=== PATIENT | male | born 1980 | race Caucasian/White ===

== ENCOUNTER 2019-02-07 11:06 | Outpatient (REF) | payer BC, SELFPAY ==
[2019-02-07 12:26] LABS: Abs Immature Grans 0.01 k/cumm (0.0-0.09); Absolute Basophil Count 0.02 k/cumm (0.0-0.2); Absolute Eosinophil Count 0.03 k/cumm (0.0-0.7); Absolute Lymphocyte Count 0.71 k/cumm (1.2-3.4); Absolute Monocyte Count 1.41 k/cumm (0.11-0.7); Absolute Neutrophil Count 9.44 k/cumm (1.2-6.7); Basophils % 0.2; Eosinophils % 0.3; HCT 35.5 % (40.0-50.0); HGB 11.9 g/dL (13.5-17.5); Immature Grans % 0.1; Lymphocytes % 6.1; Mean Corp. HGB Concentration 33.5 g/dL (32.0-36.0); Mean Corpuscular Volume 62.7 fL (80-95); Monocytes % 12.1; Neutrophils % 81.2; RBC 5.66 m/cumm (4.50-6.00); RBC Distribution Width 16.3 % (11.8-14.1); White Blood Cell Count 11.62 k/cumm (4.4-10.8)
[2019-02-07 12:36] LABS: ALT 35 U/L (16-63); AST 22 U/L (15-37); Albumin 4.1 g/dL (3.4-5.0); Alkaline Phosphatase 118 U/L (46-116); Anion Gap 8.6 mmol/L (3-11); BUN 12 mg/dL (7-18); Bilirubin, Total 1.7 mg/dL (0.2-1.0); CO2 26.4 mmol/L (21.0-32.0); CREATININE 0.92 mg/dL (0.70-1.30); Chloride 101 mmol/L (98-107); Glucose 96 mg/dL (70-100); Potassium 4.2 mmol/L (3.5-5.1); Sodium 136 mmol/L (136-145); Total Protein 7.6 g/dL (6.4-8.2)
[2019-02-07 12:44] LABS: Anisocytosis 3+; Basophilic Stippling Present; Diff Comment RBC Morph Reviewed; Hypochromasia 3+; Microcytosis 3+; Platelet Count 186 x1000/uL (130-400); Poikilocytes 3+
== END 2019-02-07 11:26 ==
LOC: LBN 11:06
PROVIDERS: PCP Nurse Practitioner Family; Visit Provider Family Medicine
DX: R10.9 Unspecified abdominal pain (principal)
CPT/HCPCS: 80053; 85025

== ENCOUNTER 2019-02-07 12:03 | Observation (INO) | payer BC, SELFPAY ==
[2019-02-07] VITALS (11 sets, daily range): BP systolic 84–119; BP diastolic 37–69; PULSE 51–75; RESP 12–18; TEMP 36.6–37.3; O2SAT 94–100
--- NOTE | 2019-02-07 12:18 | ED.GENADUL_ITS ---
Discharge Plan Disposition Patient Disposition: [facility] INPATIENT Condition: Stable Discharge Details Chief Complaint: Abd Prob Clinical Impression: Acute appendicitis Admit Date/Time: 02/07/19 15:08 Admit Provider: Sherri Dowd Attending Provider: Sherri Dowd Primary Care Provider: Swathi Smith ED Provider: Karyn Schultz Medical Decision Making 1210 -- 39-year-old male with no significant past medical or surgical history presents with constant gnawing upper abdominal pain since yesterday. Heart rate 50s, vitals within normal limits. Afebrile. Considering patient's age and history, EKG done on arrival which noted peaked T waves and T wave inversion in V2 but no acute ST ischemic changes. He has tenderness to palpation across the entire upper abdomen as well as right lower quadrant. Ultrasound done today per PCP negative. Lab work not yet reported. Differential diagnosis includes pancreatitis, PUD, gastritis, appendicitis. Will place an IV, bolus IV fluids, morphine, Pepcid, Zofran, screening labs and CT abdomen and pelvis. 1355 -- labs and imaging reviewed. White blood cell count 11.4. Normal electrolytes. Lipase within normal limits. Troponin negative. CT notes acute appendicitis. 1403 -- discussed with Dr. Dowd -agrees with plan for Zosyn. Accepts pt with plan for OR. Medical Records Medical records reviewed: Yes I reviewed the patient's medical records. Imaging Data Radiologic Study: Radiologist's impression: CT ABDOMEN AND PELVIS W CLINICAL HISTORY: upper abd pain/tender to palp/RLQ tenderness. TECHNIQUE: Imaging Protocol: Axial computed tomography images with coronal and sagittal reformatted images were created and reviewed CONTRAST MATERIAL: Intravenous: Omnipaque 350 Contrast volume:100 mL contrast route:IV - Oral: No COMPARISON: No exams were available for comparison FINDINGS: ABDOMEN: Lung Bases: Normal where visualized. The portal, superior mesenteric, and splenic veins are patent. Liver: Normal density. No mass. Gallbladder and biliary tract: No radiodense calculus or dilation. Pancreas: Normal density, no abnormal calcifications or inflammatory process. Spleen: Normal. Kidneys: Normal size, contour and axis. No radiodense stones or obstructive uropathy. No masses seen. Adrenal glands: No masses seen. Abdominal Aorta: Abdominal portion non-dilated. Lymph nodes: Unremarkable. PELVIS: Bladder: Symmetric distention, no gross wall thickening. Bowel: There is a dilated retrocecal appendix. There is enhancement of the wall of the appendix. The appendix measures 1.4 cm in diameter. There is an appendicolith present proximally. Peritoneal cavity: There is a trace amount of free fluid adjacent to the appendix. No focal fluid collection is seen to suggest an abscess. No pneumoperitoneum is present. Bones: Within normal limits. Reproductive organs: Unremarkable. Impression: Acute appendicitis with appendicolith. No abscess or pneumoperitoneum. The findings were discussed with the emergency department on the date of the examination. Lab Data Lab results reviewed: Yes I reviewed the patient's lab results. Labs: Laboratory Tests Range/Units 02/07/19 02/07/19 02/07/19 12:55 12:55 13:51 WBC (4.4-10.8) k/cumm 11.41 H RBC (4.50-6.00) m/cumm 5.65 Hgb (13.5-17.5) g/dL 11.7 L Hct (40.0-50.0) % 35.4 L MCV (80-95) fL 62.7 L MCH (27.0-33.0) pg 20.7 L MCHC (32.0-36.0) g/dL 33.1 RDW (11.8-14.1) % 16.1 H Plt Count (130-400) x1000/uL 190 MPV (8.0-11.0) fL Immature Gran % 0.2 Neutrophils % 80.6 Lymphocytes % 8.3 Monocytes % 10.4 Eosinophils % 0.3 Basophils % 0.2 Absolute Neutrophils (1.2-6.7) k/cumm 9.20 H Absolute Lymphocytes (1.2-3.4) k/cumm 0.95 L Absolute Monocytes (0.11-0.7) k/cumm 1.19 H Absolute Eosinophils (0.0-0.7) k/cumm 0.03 Absolute Basophils (0.0-0.2) k/cumm 0.02 Differential Comment Rbc morph reviewed RBC Morphology See below Hypochromasia 3+ Poikilocytosis 3+ Basophilic Stippling Present Anisocytosis 3+ Microcytosis 3+ Sodium (136-145) mmol/L 135 L Potassium (3.5-5.1) mmol/L 4.2 Chloride (98-107) mmol/L 102 Carbon Dioxide (21.0-32.0) mmol/L 25.0 Anion Gap (3-11) mmol/L 8.0 BUN (7-18) mg/dL 11 Creatinine (0.70-1.30) mg/dL 0.84 Estimated GFR/1.73 m2 (mL/min/1.73m2) >= 60.00 Glucose (70-100) mg/dL 104 H Calcium (8.5-10.1) mg/dL 8.8 Magnesium (1.8-2.4) mg/dL 1.8 Total Bilirubin (0.2-1.0) mg/dL 1.7 H AST (15-37) U/L 23 ALT (16-63) U/L 28 Alkaline Phosphatase (46-116) U/L 107 Troponin I (0.00-0.06) ng/mL < 0.05 Total Protein (6.4-8.2) g/dL 7.3 Albumin (3.4-5.0) g/dL 3.8 Lipase (73-393) U/L 57 L Urine Color (Yellow) Yellow Urine Clarity (Clear) Clear Urine pH (5-8) 7.0 Ur Specific [place] (1.005-1.025) 1.010 Urine Protein (Negative) mg/dL Negative Urine Ketones (Negative) mg/dL Negative Urine Blood (Negative) Negative Urine Nitrite (Negative) Negative Urine Bilirubin (Negative) Negative Urine Urobilinogen (Up TO 0.2) EU/dL 0.2 Ur Leukocyte Esterase (Negative) Negative Urine Glucose (Negative) mg/dL Negative ECG Data Attestation: I personally reviewed and interpreted this ECG (s) as follows: Interpretation: Rate of 54, sinus, T wave inversion in V2. Peaked T waves in 1, 2, V3 through V6. DE 174. QTc 406. HPI General Mode of arrival: ambulatory . Date/Time Provider Initiated Documentation: 02/07/19 12:05 . Limitations to Documentation: no limitations . Information obtained by: patient . HPI Narrative: Pt is a 39yo M who presents to the ED w/ a c/o constant upper abdominal pain since yesterday. He describes the pain as knawing and currently 8/10. He denies radiation of pain. He states the pain is worse with moving and when he takes a deep breath. He states it slightly better when he remains still. He denies any relief with Advil or Pepto. He denies any similar history of pain in the past. He denies fever, nausea, vomiting, diarrhea, urinary symptoms, bowel or bladder incontinence, recent travel, recent surgery, leg pain or swelling. He states his last bowel movement was last night and normal. He denies any alcohol or drug use. He saw his primary care doctor today for the symptoms and was referred for outpatient lab work and ultrasound. Lab work not yet processed and ultrasound was negative. 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 He denies any chest pain or shortness of breath. Related Data Home Medications Medication Instructions Recorded Confirmed albuterol sulfate 1 - 2 puff INHALATION Q4H PRN #1 02/20/15 02/07/19 inhaler fluticasone propionate [Flonase 9.9 ml NS PRN 10/22/17 02/07/19 Allergy Relief] triamcinolone acetonide 1 film TOPICAL 2-4 times daily #1 10/22/17 02/07/19 tube Previous Rx's Medication Instructions Recorded triamcinolone acetonide 1 film TOPICAL 2-4 times daily #1 10/22/17 tube Allergies Allergy/AdvReac Type Severity Reaction Status Date / Time No Known Allergies Allergy Verified 02/07/19 10:31 General Stated Complaint: Abd Prob SONIA: 3 Review of Systems Review of Systems ROS Unobtainable: All systems reviewed & are unremarkable except as noted in HPI and below Constitutional Constitutional: Reports as per HPI, Denies chills and Denies fever(s) Eyes Eyes: Denies blurry vision ENT Ears, Nose, Mouth, and Throat: Denies dizziness, Denies sore throat and Denies throat swelling Cardiovascular Cardiovascular: Denies chest pain and Denies dyspnea Respiratory Respiratory: Denies cough and Denies dyspnea Gastrointestinal Gastrointestinal: Reports abdominal pain, Denies diarrhea and Denies vomiting Genitourinary Genitourinary: Denies hematuria and Denies dysuria Musculoskeletal Musculoskeletal: Denies back pain and Denies numbness Integumentary/Breasts Skin/Breast: Denies lesions and Denies rash Neurologic Neurologic: Denies dizziness, Denies focal weakness and Denies numbness Allergic/Immunologic Allergic/Immunologic: Denies throat swelling [facility] Medical History Seasonal allergic rhinitis Surgical History No significant past surgical history (Acute) Family History Mother No problems noted. Father No problems noted. Sister No problems noted. Brother No problems noted. Grandmother Heart disease Grandfather Stroke Social History Smoking/Tobacco Use Status: Never Alcohol Intake: never Drug use: Never Do you feel safe at home: Yes Do you feel safe in your relationship?: Yes Exam Const General: cooperative, healthy appearing and uncomfortable HENMT Head: normal to inspection Face and sinus: normal facial exam Eyes General: appearance normal, both eyes and all related structures Pupils: PERRL EOM: EOM intact bilaterally Neck Neck: normal visual inspection and No submandibular swelling Lymphatic: no lymphadenopathy noted Chest Chest: normal inspection of the chest and no tenderness Resp Effort & Inspection: normal respiratory effort and able to speak in complete sentences Auscultation: clear to auscultation bilaterally Cardio Rate: regular rate Rhythm: regular rhythm GI Inspection: normal to inspection Palpation: soft, not firm, not rigid and tender in the epigastrum, in the RLQ, in the LUQ and in the RUQ Auscultation: hypoactive bowel sounds Skin General skin exam: no rashes or lesions noted Neuro General: alert, awake and oriented x3 Cognition: normal cognition Speech: speech normal Motor: muscle tone normal throughout Sensory Exam: no sensory deficits noted Extrem General: normal to inspection, full ROM, normal capillary refill, no calf tenderness bilaterally and no edema Psych Appearance: grossly normal Mental Status: mental status grossly normal Speech and Movement: speech and movement normal Affect: normal affect Course Vital Signs Vital signs: Vital Signs Pulse 54 L 02/07/19 12:05 Respiratory Rate 16 02/07/19 12:05 Blood Pressure 112/63 02/07/19 12:05 Pulse Oximetry 100 02/07/19 12:05 Pulse 54 L 02/07/19 12:05 Respiratory Rate 16 02/07/19 12:05 Respiratory Effort Non-Labored 02/07/19 12:08 Blood Pressure 112/63 02/07/19 12:05 Pulse Oximetry 100 02/07/19 12:05 Oxygen Delivery Method Room Air 02/07/19 12:05 Oxygen Flow Rate 0 02/07/19 12:05
[2019-02-07] MEDS: Normal Saline 1,000 ML 1000 ML IV ×2 (12:30→14:28)
[2019-02-07] MEDS: Ondansetron 4 MG/2 ML VIAL IVP (12:30)
--- NOTE | 2019-02-07 12:33 | DI.CT_ITS ---
EXAM: CT ABDOMEN AND PELVIS W CLINICAL HISTORY: upper abd pain/tender to palp/RLQ tenderness. TECHNIQUE: Imaging Protocol: Axial computed tomography images with coronal and sagittal reformatted images were created and reviewed CONTRAST MATERIAL: Intravenous: Omnipaque 350 Contrast volume:100 mL contrast route:IV - Oral: No COMPARISON: No exams were available for comparison FINDINGS: ABDOMEN: Lung Bases: Normal where visualized. The portal, superior mesenteric, and splenic veins are patent. Liver: Normal density. No mass. Gallbladder and biliary tract: No radiodense calculus or dilation. Pancreas: Normal density, no abnormal calcifications or inflammatory process. Spleen: Normal. Kidneys: Normal size, contour and axis. No radiodense stones or obstructive uropathy. No masses seen. Adrenal glands: No masses seen. Abdominal Aorta: Abdominal portion non-dilated. Lymph nodes: Unremarkable. PELVIS: Bladder: Symmetric distention, no gross wall thickening. Bowel: There is a dilated retrocecal appendix. There is enhancement of the wall of the appendix. Th e appendix measures 1.4 cm in diameter. There is an appendicolith present proximally. Peritoneal cavity: There is a trace amount of free fluid adjacent to the appendix. No focal fluid co llection is seen to suggest an abscess. No pneumoperitoneum is present. Bones: Within normal limits. Reproductive organs: Unremarkable. Impression: Acute appendicitis with appendicolith. No abscess or pneumoperitoneum. The findings were discussed with the emergency department on the date of the examination. DATA REPOSITORY: All CT scans at this facility are submitted to the National Radiology Data Registry (NRDR) Dose Index Registry (DIR) with the [employer] (ACR). RADIATION OPTIMIZATION: All CT scans at this facility use at least one of these dose optimization te chniques: automated exposure control; mA and/or kV adjustment per patient size (includes targeted exa ms where dose is matched to clinical indication); or iterative reconstruction.
[2019-02-07] MEDS: FAMOTIDINE 20 MG/50 ML BAG 200 MG IVPB (12:40)
[2019-02-07 13:09] LABS: Abs Immature Grans 0.02 k/cumm (0.0-0.09); Absolute Basophil Count 0.02 k/cumm (0.0-0.2); Absolute Eosinophil Count 0.03 k/cumm (0.0-0.7); Absolute Lymphocyte Count 0.95 k/cumm (1.2-3.4); Absolute Monocyte Count 1.19 k/cumm (0.11-0.7); Basophils % 0.2; Eosinophils % 0.3; HCT 35.4 % (40.0-50.0); HGB 11.7 g/dL (13.5-17.5); Immature Grans % 0.2; Lymphocytes % 8.3; Mean Corp. HGB Concentration 33.1 g/dL (32.0-36.0); Mean Corpuscular Hemoglobin 20.7 pg (27.0-33.0); Mean Corpuscular Volume 62.7 fL (80-95); Monocytes % 10.4; Neutrophils % 80.6; RBC 5.65 m/cumm (4.50-6.00); RBC Distribution Width 16.1 % (11.8-14.1); White Blood Cell Count 11.41 k/cumm (4.4-10.8)
[2019-02-07 13:24] LABS: Anisocytosis 3+; Basophilic Stippling Present; Diff Comment RBC Morph Reviewed; Hypochromasia 3+; Microcytosis 3+; Platelet Count 190 x1000/uL (130-400)
[2019-02-07 13:25] LABS: Poikilocytes 3+
[2019-02-07 13:40] LABS: ALT 28 U/L (16-63); AST 23 U/L (15-37); Albumin 3.8 g/dL (3.4-5.0); Alkaline Phosphatase 107 U/L (46-116); BUN 11 mg/dL (7-18); Bilirubin, Total 1.7 mg/dL (0.2-1.0); CREATININE 0.84 mg/dL (0.70-1.30); Calcium 8.8 mg/dL (8.5-10.1); Chloride 102 mmol/L (98-107); Glucose 104 mg/dL (70-100); Lipase 57 U/L (73-393); Magnesium 1.8 mg/dL (1.8-2.4); Potassium 4.2 mmol/L (3.5-5.1); Sodium 135 mmol/L (136-145); Total Protein 7.3 g/dL (6.4-8.2)
[2019-02-07 13:48] LABS: Troponin I < 0.05 ng/mL (0.00-0.06)
[2019-02-07 14:05] LABS: Bilirubin Negative (Negative); Blood Negative (Negative); Clarity Clear (Clear); Glucose Negative (Negative); Ketones Negative (Negative); Leukocyte Esterase Negative (Negative); Nitrite Negative (Negative); Urobilinogen 0.2 EU/dL (Up TO 0.2)
[2019-02-07] MEDS: PIPERACILLIN/TAZO 3.375 GM in Normal Saline 50 ML IVPB (14:20)
--- NOTE | 2019-02-07 14:56 | W.PM.HP.N ---
Date of service: 02/07/19 Time of Service: 14:56 Assessment and Plan Assessment and plan (1) Acute appendicitis: Status: Acute Assessment and plan: A\\ Acute appendicitis P\\ Laparoscopic Appendectomy Cora 3.375 gm x 1 now SCD's in OR Admit overnight Discussed surgical and non-surgical approach to treatment of acute early appendicitis. Risks, benefits and complications of both were reviewed. Recommend Lap. Appi as he is young and healthy. Complications include but are not limited to bleeding, infection, leak from a bowel injury or from the staple line, abscess, need for another surgery if there is a missed bowel injury, need to convert to open, bladder injury, sore throat, and adverse effects of the medications given. Questions were entertained and answered to his satisfaction and he wished to proceed. No guarantees were given or implied. Qualifiers: Acute appendicitis type: with localized peritonitis Appendicitis gangrene presence: without gangrene Appendicitis perforation presence: without perforation Appendicitis abscess presence: without abscess Qualified Code(s): K35.30 - Acute appendicitis with localized peritonitis, without perforation or gangrene History of Present Illness History of Present Illness Chief Complaint: abdominal pain Consults Consult date: 02/07/19 Requesting physician: Karyn Schultz Narrative: Mr. turcios is a pleasant 39 year old male who started developing abdominal pain yesterday. he was seen by his PCP who sent him for labs and an US. US was negative. labs showed a slight increase in his WBC count. He then was seen in our ER and a CT scan was ordered witch showed an appendicolith and inflammation around the appendix. No other acute findings. No signs of abscess or rupture. He denies any N/V or changes in bowel habits. He last ate some apple sauce at 4 am and had a sip of water at 10 am. He denies any cardiac, respiratory issues. He is active and runs a few miles each day Review of Systems Constitutional Constitutional: Denies fever(s) and Reports poor appetite Eyes Eyes: Denies change in vision Cardiovascular Cardiovascular: Denies chest pain, Denies chest pain at rest, Denies irregular heart rhythm, Denies palpitations, Denies dyspnea and Denies dyspnea on exertion Respiratory Respiratory: Denies cough, Denies dyspnea and Denies dyspnea on exertion Gastrointestinal Gastrointestinal: Reports as per HPI Genitourinary Genitourinary: Denies hematuria and Denies dysuria Musculoskeletal Musculoskeletal: Reports system reviewed and no additional complaints, except as docu Endocrine Endocrine: Reports system reviewed and no additional complaints, except as docu and Denies palpitations PFSH Medical History Seasonal allergic rhinitis Surgical History No significant past surgical history (Acute) Family History Mother No problems noted. Father No problems noted. Sister No problems noted. Brother No problems noted. Grandmother Heart disease Grandfather Stroke Social History Smoking/Tobacco Use Status: Never Alcohol Intake: never Drug use: Never Do you feel safe at home: Yes Do you feel safe in your relationship?: Yes Meds Home Medications and Allergies Home Medications Medication Instructions Recorded Confirmed Type albuterol sulfate 1 - 2 puff INHALATION Q4H PRN #1 02/20/15 02/07/19 History inhaler fluticasone propionate [Flonase 9.9 ml NS PRN 10/22/17 02/07/19 History Allergy Relief] triamcinolone acetonide 1 film TOPICAL 2-4 times daily #1 10/22/17 02/07/19 Rx tube Allergies Allergy/AdvReac Type Severity Reaction Status Date / Time No Known Allergies Allergy Verified 02/07/19 10:31 Exam Const General: cooperative and no acute distress [facility] Head: normocephalic and atraumatic Eyes Pupils: PERRL Resp Effort & Inspection: normal respiratory effort Auscultation: clear to auscultation bilaterally Cardio Rate: regular rate Rhythm: regular rhythm Heart Sounds: no gallops, no murmurs and no rubs GI Inspection: normal to inspection Palpation: soft, no hepatosplenomegaly and tender in the LLQ, at McBurney's point and periumbilically Auscultation: normal bowel sounds Results Labs Result diagrams: 02/07/19 12:55 02/07/19 12:55 Labs: Laboratory Results - last 24 hr 02/07/19 02/07/19 02/07/19 12:55 12:55 13:51 WBC 11.41 H RBC 5.65 Hgb 11.7 L Hct 35.4 L MCV 62.7 L MCH 20.7 L MCHC 33.1 RDW 16.1 H Plt Count 190 MPV Immature Gran % 0.2 Neutrophils % 80.6 Lymphocytes % 8.3 Monocytes % 10.4 Eosinophils % 0.3 Basophils % 0.2 Absolute Neutrophils 9.20 H Absolute Lymphocytes 0.95 L Absolute Monocytes 1.19 H Absolute Eosinophils 0.03 Absolute Basophils 0.02 Differential Comment Rbc morph reviewed RBC Morphology See below Hypochromasia 3+ Poikilocytosis 3+ Basophilic Stippling Present Anisocytosis 3+ Microcytosis 3+ Sodium 135 L Potassium 4.2 Chloride 102 Carbon Dioxide 25.0 Anion Gap 8.0 BUN 11 Creatinine 0.84 Estimated GFR/1.73 m2 >= 60.00 Glucose 104 H Calcium 8.8 Magnesium 1.8 Total Bilirubin 1.7 H AST 23 ALT 28 Alkaline Phosphatase 107 Troponin I < 0.05 Total Protein 7.3 Albumin 3.8 Lipase 57 L Urine Color Yellow Urine Clarity Clear Urine pH 7.0 Ur Specific [place] 1.010 Urine Protein Negative Urine Ketones Negative Urine Blood Negative Urine Nitrite Negative Urine Bilirubin Negative Urine Urobilinogen 0.2 Ur Leukocyte Esterase Negative Urine Glucose Negative Last Vital Signs Temp 98.9 F 02/07/19 12:05 Pulse 54 L 02/07/19 12:05 Resp 16 02/07/19 12:05 BP 112/63 02/07/19 12:05 Pulse Ox 100 02/07/19 12:05
[2019-02-07] MEDS: Lactated Ringers 1,000 ML 200 ML IV (15:06)
[2019-02-07] MEDS: Lidocaine 1% Multi-Dose 50 ML VIAL (15:40)
--- NOTE | 2019-02-07 15:43 | APP_PTH ---
PATIENT: Shay Webber LOC: U#:[id number] AGE/SX: 39/M ROOM: [id number] RE02/07/[address]: Sherri Dowd MD : 1980 BED: A DIS: 02/08/2019 SPEC #: [id number] RECD: 02/07/19 17:49 STATUS: SAUL REQ #: [id number] DARIAN: 02/07/19 15:[address]: Sherri Dowd DEPT: Surgical Specimen RECD BY: Yris Ghotra ENTERED: 02/07/19 17:50 SP TYPE: Appendix OTHR DR: Swathi Smith APRN Tissues: 1 - APPENDIX NOT INCIDENTAL Procedures: GROSS AND MICRO LEVEL 3 Comments: [id number]
[2019-02-07] MEDS: Bupivacaine LIPOSOME/PF 133 MG/10 ML VIAL IJ (15:51)
--- NOTE | 2019-02-07 16:02 | W.PM.OP ---
Date of service: 02/07/19 Time of Service: 16:02 Operative Note Operative Note DATE OF PROCEDURE: 02/07/19 PRE-OP DIAGNOSIS: Acute Appendicitis POST-OP DIAGNOSIS: other (Suppurative appendicitis) PROCEDURE: Laparoscopic Appendectomy SURGEON: Sherri Dowd DIRECTOR MARKET RESEARCH: Toby Hargrove ANESTHESIA: GETA and local (1% Lidocaine and 10 cc of exparel) ESTIMATED BLOOD LOSS: 15 PATHOLOGY: other (Appendix) COMPLICATIONS: None Patient was transported to: PACU Patient's condition: stable Indications: Mr. Webber is a pleasant 39 year old male who was seen in the ER with [address] scan showed Appendicitis without evidence of rupture. Risks, benefits, complications of the procedure were reviewed with the patient and he wished to proceed. No guarantees were given or implied. Findings: Inflammed and thickened appendix with inflammatory fluid in the pelvis. No evidence of rupture Procedure Description: After informed consent was obtained the patient was taken to the operating room placed in the supine position, SCDs were applied, as well as monitors. A timeout was done. The patient was then placed under general anesthesia and intubated without any difficulty. At this point the abdomen was prepped and draped in a sterile surgical fashion with chlorhexidine. A second timeout was done and the patient's name, date of , operation to be performed, DVT prophylaxis, antibiotic given were reviewed. Fire risk was assessed. No silverio was placed as the patient had just gone to the bathroom to empty his bladder. 1 % lidocaine was injected into the dermis just above the umbilicus. A small 5 mm incision was made with an 11 blade. The skin was grasped with penetrating towel clamps on either side of the incision and then using a Visiport a 5 mm port was placed under direct visualization into the abdomen. The abdomen was insufflated. Local anesthetic was then injected just above the pubic symphysis in the midline. A small 5 mm incision was made with an 11 blade and another 5 mm port was placed under direct visualization into the abdomen. The local anesthetic was then injected in the left lower quadrant area and a 11 mm incision was made with an 11 blade. A 11 mm port was then placed under direct visualization. The bladder was identified and looked distended. The patient's bed was then turned to the left allowing me to sweep of the small bowel out of the right lower quadrant. The cecum was gently grasped and the appendix was identified. The appendix was noted to be thickened and inflammed. NO necrotic area was noted and no abscess was identified. There was inflammatory fluid noted in the right gutter and the pelvis. The appendix was grasped at the tip and pulled up allowing me to visualize the junction with the cecum. Using the laparoscopic LigaSure the mesoappendix was transected. Using a straight laparoscopic stapler the appendix was stapled at the junction with the cecum. The appendix was then placed into an Endo Catch bag and removed through the 11 mm port site. The port was placed back into the abdomen and the staple line was identified. No bleeding was noted from the staple line. The abdomen was then irrigated with 500 cc of warm normal saline. The effluent was clear. The staple line was inspected one more time and no bleeding was identified at this point. Once all the fluid was suctioned out of the abdomen 20 cc of the local anesthetic was injected above the liver bed to hopefully help with postoperative shoulder pain. The 2 5 mm ports were then removed under direct visualization and no bleeding was noted from the fascia. The insufflation was stopped and the 11 mm port was removed. The 11 mm port site fascia was closed with a 0 Vicryl [id number] suture. 10 cc of exparel was then injected into the fascia of all three incision sites. The skin was then closed with 4-0 Vicryl. The skin was cleaned and dried and skin affix was applied. A straight cath was performed to empty the patients bladder prior to waking him up and extubating him. The patient was woken up, extubated and taken back to recovery room in stable condition. There were no immediate complications. Sponge instrument needle counts were correct at the end of the case x2.
[2019-02-07] MEDS: Lactated Ringers 1,000 ML 80 ML IV (16:33)
[2019-02-07] MEDS: Normal Saline 1,000 ML 75 ML IV (17:46)
[2019-02-07] MEDS: Ketorolac 30 MG/ML VIAL IVP (18:48)
[2019-02-08 01:49] VITALS: RESP 18; O2SAT 96
[2019-02-08 02:08] VITALS: BP 100/53; PULSE 52; RESP 18; TEMP 36.5; O2SAT 97
--- NOTE | 2019-02-08 02:43 | NUR.NOTE ---
Nursing Note: Pt received from PACU staff, s/p lap AP. AO x 3., 3 incisions sites exposed to air, clean,dry and intact. Medicated once for pain. Voiding many times. Out of bed to bathroom once, verbalized of being dizzy. Urinal being used. No further voiced complaints. Call lights at reach.
[2019-02-08] MEDS: Normal Saline 1,000 ML 75 ML IV (04:33)
[2019-02-08 07:23] VITALS: BP 102/62; PULSE 55; RESP 16; TEMP 36.6; O2SAT 98
--- NOTE | 2019-02-08 08:35 | W.PM.PROGNOT ---
Date of Service Date of service: 02/08/19 Time of Service: 08:35 Assessment and Plan Assessment and plan (1) S/P laparoscopic appendectomy: Status: Acute Assessment and plan: A\\ POD #1 s/p Appendectomy P\\ D/C to home Ibuprofen and Tylenol for pain Ice for pain Regular diet Subjective Subjective Interval history since last seen: Mr. Webber is doing well this am. His pain has been well controlled on Toradol. Last dose was at 3 am. He has been up and walking. he has had no N/V. He is eating without increased pain. he describes the pain as an ache. Exam Resp Effort & Inspection: normal respiratory effort Auscultation: clear to auscultation bilaterally Cardio Rate: regular rate Rhythm: regular rhythm Heart Sounds: no gallops, no murmurs and no rubs GI Inspection: normal to inspection, incision (c/d/i) and other Palpation: soft, no hepatosplenomegaly and tender (mild tenderness around incisions) Auscultation: normal bowel sounds Objective Objective Clinical Data: Abnormal lab results 02/07/19 02/07/19 Range/Units 12:55 12:55 WBC 11.41 H (4.4-10.8) k/cumm Hgb 11.7 L (13.5-17.5) g/dL Hct 35.4 L (40.0-50.0) % MCV 62.7 L (80-95) fL MCH 20.7 L (27.0-33.0) pg RDW 16.1 H (11.8-14.1) % Absolute Neutrophils 9.20 H (1.2-6.7) k/cumm Absolute Lymphocytes 0.95 L (1.2-3.4) k/cumm Absolute Monocytes 1.19 H (0.11-0.7) k/cumm Sodium 135 L (136-145) mmol/L Glucose 104 H (70-100) mg/dL Total Bilirubin 1.7 H (0.2-1.0) mg/dL Lipase 57 L (73-393) U/L Vital Signs Temperature 97.9 F 02/08/19 07:23 Temperature Source Tympanic 02/08/19 07:23 Pulse 55 L 02/08/19 07:23 Pulse Rhythm Regular 02/08/19 04:30 Respiratory Rate 16 02/08/19 07:23 Respiratory Effort Non-Labored 02/08/19 04:30 Respiratory Depth Normal 02/08/19 04:30 Respiratory Pattern Normal 02/08/19 04:30 Blood Pressure 102/62 02/08/19 07:23 Pulse Oximetry 98 02/08/19 07:23 Respiratory End-tidal CO2 33 02/07/19 16:53 Oxygen Delivery Method Room Air 02/08/19 07:23 Oxygen Flow Rate 0 02/08/19 07:23 Pain Level 0 02/08/19 07:23 Intake & Output 02/07/19 02/07/19 02/08/19 11:59 23:59 11:59 Intake Total 2930 / 2930 1208.75 / 1208.75 Output Total 2650 / 2650 600 / 600 Balance 280 / 280 608.75 / 608.75 Weight 143 lb 0.01 oz Intake: IV 2029 / 2029 808.75 / 808.75 Oral 900 / 900 400 / 400 Output: Urine 2650 / 2650 600 / 600 Other: Urine Color Yellow Yellow Urine Appearance Clear Clear Urine Odor Normal Normal Comment pt voided in toilet; urine not assessed at this time r/t pt flushing toilet Emesis Description None Voiding Methods Urinal Toilet Laboratory Results WBC 11.41 k/cumm (4.4-10.8) H 02/07/19 12:55 RBC 5.65 m/cumm (4.50-6.00) 02/07/19 12:55 Hgb 11.7 g/dL (13.5-17.5) L 02/07/19 12:55 Hct 35.4 % (40.0-50.0) L 02/07/19 12:55 MCV 62.7 fL (80-95) L 02/07/19 12:55 MCH 20.7 pg (27.0-33.0) L 02/07/19 12:55 MCHC 33.1 g/dL (32.0-36.0) 02/07/19 12:55 RDW 16.1 % (11.8-14.1) H 02/07/19 12:55 Plt Count 190 x1000/uL (130-400) 02/07/19 12:55 MPV fL (8.0-11.0) 02/07/19 12:55 Immature Gran % 0.2 02/07/19 12:55 Neutrophils % 80.6 02/07/19 12:55 Lymphocytes % 8.3 02/07/19 12:55 Monocytes % 10.4 02/07/19 12:55 Eosinophils % 0.3 02/07/19 12:55 Basophils % 0.2 02/07/19 12:55 Absolute Neutrophils 9.20 k/cumm (1.2-6.7) H 02/07/19 12:55 Absolute Lymphocytes 0.95 k/cumm (1.2-3.4) L 02/07/19 12:55 Absolute Monocytes 1.19 k/cumm (0.11-0.7) H 02/07/19 12:55 Absolute Eosinophils 0.03 k/cumm (0.0-0.7) 02/07/19 12:55 Absolute Basophils 0.02 k/cumm (0.0-0.2) 02/07/19 12:55 Differential Comment Rbc morph reviewed 02/07/19 12:55 RBC Morphology See below 02/07/19 12:55 Hypochromasia 3+ 02/07/19 12:55 Poikilocytosis 3+ 02/07/19 12:55 Basophilic Stippling Present 02/07/19 12:55 Anisocytosis 3+ 02/07/19 12:55 Microcytosis 3+ 02/07/19 12:55 Sodium 135 mmol/L (136-145) L 02/07/19 12:55 Potassium 4.2 mmol/L (3.5-5.1) 02/07/19 12:55 Chloride 102 mmol/L (98-107) 02/07/19 12:55 Carbon Dioxide 25.0 mmol/L (21.0-32.0) 02/07/19 12:55 Anion Gap 8.0 mmol/L (3-11) 02/07/19 12:55 BUN 11 mg/dL (7-18) 02/07/19 12:55 Creatinine 0.84 mg/dL (0.70-1.30) 02/07/19 12:55 Estimated GFR/1.73 m2 >= 60.00 (mL/min/1.73m2) 02/07/19 12:55 Glucose 104 mg/dL (70-100) H 02/07/19 12:55 Calcium 8.8 mg/dL (8.5-10.1) 02/07/19 12:55 Magnesium 1.8 mg/dL (1.8-2.4) 02/07/19 12:55 Total Bilirubin 1.7 mg/dL (0.2-1.0) H 02/07/19 12:55 AST 23 U/L (15-37) 02/07/19 12:55 ALT 28 U/L (16-63) 02/07/19 12:55 Alkaline Phosphatase 107 U/L (46-116) 02/07/19 12:55 Troponin I < 0.05 ng/mL (0.00-0.06) 02/07/19 12:55 Total Protein 7.3 g/dL (6.4-8.2) 02/07/19 12:55 Albumin 3.8 g/dL (3.4-5.0) 02/07/19 12:55 Lipase 57 U/L (73-393) L 02/07/19 12:55 Urine Color Yellow (Yellow) 02/07/19 13:51 Urine Clarity Clear (Clear) 02/07/19 13:51 Urine pH 7.0 (5-8) 02/07/19 13:51 Ur Specific [place] 1.010 (1.005-1.025) 02/07/19 13:51 Urine Protein Negative mg/dL (Negative) 02/07/19 13:51 Urine Ketones Negative mg/dL (Negative) 02/07/19 13:51 Urine Blood Negative (Negative) 02/07/19 13:51 Urine Nitrite Negative (Negative) 02/07/19 13:51 Urine Bilirubin Negative (Negative) 02/07/19 13:51 Urine Urobilinogen 0.2 EU/dL (Up TO 0.2) 02/07/19 13:51 Ur Leukocyte Esterase Negative (Negative) 02/07/19 13:51 Urine Glucose Negative mg/dL (Negative) 02/07/19 13:51
--- NOTE | 2019-02-08 08:44 | W.PM.DS.N ---
Date of service: 02/08/19 Time of Service: 08:44 DS: Diagnosis Discharge Diagnosis (1) S/P laparoscopic appendectomy: Status: Acute Discharge Plan Disposition Patient Disposition: HOME Condition: Stable Discharge Details Chief Complaint: Abd Prob Clinical Impression: Acute appendicitis Reason For Visit: ACUTE APPENDICITIS Admit Date/Time: 02/07/19 15:08 Admit Provider: Sherri Dowd Attending Provider: Sherri Dowd Primary Care Provider: Swathi Smith ED Provider: Karyn Schultz Hospital Course Hospital Course: Mr. Webber is a pleasant 39 year old male who was seen in the ER yesterday after having 36 hours of abdominal pain. WBC count was slightly elevated on admission and CT scan showed acute appendicitis. He underwent an uneventful Laparoscopic appendectomy on 02/07/19. he was admitted for observation and did well overnight. His pain has been controlled on Toradol. He has eaten a regular diet without N/V. He has been up and walking. He will be discharged home on Ibuprofen and Tylenol. Ice is recommended for pain as well. Home Meds and New Rx's Prescriptions: New acetaminophen [Tylenol] 325 mg capsule 650 mg PO Q6H PRN (Reason: fever or pain) Qty: 30 RF: 0 ibuprofen 600 mg tablet 600 mg PO Q6H PRN (Reason: fever or pain) Qty: 30 RF: 0 Continued albuterol sulfate 8.5 GM HFA aerosol inhaler 1 - 2 puff Inhalation Q4H PRN Qty: 1 RF: 0 fluticasone propionate [Flonase Allergy Relief] 9.9 ML spray,suspension 9.9 ml NS PRN RF: 0 triamcinolone acetonide 15 GM cream 1 film Topical 2-4 times daily Qty: 1 RF: 1 Discharge Instructions Instructions: Laparoscopic Appendectomy (DC) Additional Instructions: Activity at Home after surgery: 1. Make sure you walk outside at least 4 times per day 2. You should be able to climb a flight of stairs 3. No driving while in pain or taking pain medications 4. No strenuous activity or heavy lifting for 2 weeks (no lifting, pushing or pulling >20 lb x 2 weeks) Diet, Nutrition, & wound healin. Avoid alcohol until after you are recovered from your surgery 2. Make sure to eat plenty of lean protein (meat, fish, eggs, cottage cheese, beans) 3. Eat a variety of fruits and vegetables. Eat plenty of high fiber foods to avoid constipation. 4. Drink plenty of liquids to stay hydrated and avoid constipation Pain Medications: 1. Tylenol 650 mg every 6 hours as needed and Ibuprofen 600 mg every 6 hours as needed. (Do not take the pain medications at the same time. Take Tylenol for example and 3 hours later if needed take Ibuprofen) 2. If a narcotic has been prescribed take as directed only for breakthrough pain For Constipation: 1. Take Milk of Magnesia or MiraLax as needed for constipation Other: 1. You may shower daily. Do not scrub the incisions 2. Do not soak the incisions for 1 week 3. You may alternate ice and heat as needed for pain and swelling Wound Care: 1. Keep the incisions clean and dry Work: You may return to work on Wednesday if you feel well enough. Remember to limit your activity a little bit as you heal. 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 Be careful not to get hit in the stomach by the soccer ball or little children) Please call our office if you develop: 1. Fevers >101.5 2. Nausea or Vomiting 3. Worsening pain 4. Redness and thick discharge from the wounds If after hours please call the Hospital at and ask to speak to the on-call surgeon Referrals: Sherri Dowd MD [ [facility]YSICIAN] - 02/21/19 1:00 pm Activity:: No lifting, pulling or pushing > 20 lb x 2 weeks Equipment/Supplies:: No Equipment Needed Diet:: As Tolerated Discharge Orders Discharge Orders: Discharge Order (Routine); Ordered 02/08/19 Ordered By: Sherri Dowd DS: Summary Status at Discharge Functional status at discharge: independent ambulation Overall status at discharge: patient is back to baseline Mental Status: mental status grossly normal and other (normal) Speech and Movement: speech and movement normal Mood: other (normal) Affect: normal affect Exam Resp Effort & Inspection: normal respiratory effort Auscultation: clear to auscultation bilaterally Cardio Rate: regular rate Rhythm: regular rhythm Heart Sounds: no gallops, no murmurs and no rubs GI Inspection: normal to inspection and incision (c/d/i) Palpation: soft, no hepatosplenomegaly and tender (mild and appropriate around incisions) Auscultation: normal bowel sounds Psych Mental Status: mental status grossly normal and other (normal) Speech and Movement: speech and movement normal Mood: other (normal) Affect: normal affect DS: Data Vitals/I&O Vitals and I&O: Vital Signs Temperature 97.9 F 02/08/19 07:23 Temperature Source Tympanic 02/08/19 07:23 Pulse 55 L 02/08/19 07:23 Pulse Rhythm Regular 02/08/19 04:30 Respiratory Rate 16 02/08/19 07:23 Respiratory Effort Non-Labored 02/08/19 04:30 Respiratory Depth Normal 02/08/19 04:30 Respiratory Pattern Normal 02/08/19 04:30 Blood Pressure 102/62 02/08/19 07:23 Pulse Oximetry 98 02/08/19 07:23 Respiratory End-tidal CO2 33 02/07/19 16:53 Oxygen Delivery Method Room Air 02/08/19 07:23 Oxygen Flow Rate 0 02/08/19 07:23 Pain Level 0 02/08/19 07:23 Intake & Output 02/07/19 02/07/19 02/08/19 11:59 23:59 11:59 Intake Total 2930 / 2930 1208.75 / 1208.75 Output Total 2650 / 2650 600 / 600 Balance 280 / 280 608.75 / 608.75 Weight 143 lb 0.01 oz Intake: IV 2029 / 2029 808.75 / 808.75 Oral 900 / 900 400 / 400 Output: Urine 2650 / 2650 600 / 600 Other: Urine Color Yellow Yellow Urine Appearance Clear Clear Urine Odor Normal Normal Comment pt voided in toilet; urine not assessed at this time r/t pt flushing toilet Emesis Description None Voiding Methods Urinal Toilet Data Completed and Pending Labs on day of discharge: Labs from last 24 hours 02/07/19 02/07/19 02/07/19 13:51 12:55 12:55 WBC 11.41 H RBC 5.65 Hgb 11.7 L Hct 35.4 L MCV 62.7 L MCH 20.7 L MCHC 33.1 RDW 16.1 H Plt Count 190 MPV Immature Gran % 0.2 Neutrophils % 80.6 Lymphocytes % 8.3 Monocytes % 10.4 Eosinophils % 0.3 Basophils % 0.2 Absolute Neutrophils 9.20 H Absolute Lymphocytes 0.95 L Absolute Monocytes 1.19 H Absolute Eosinophils 0.03 Absolute Basophils 0.02 Differential Comment Rbc morph reviewed RBC Morphology See below Hypochromasia 3+ Poikilocytosis 3+ Basophilic Stippling Present Anisocytosis 3+ Microcytosis 3+ Sodium 135 L Potassium 4.2 Chloride 102 Carbon Dioxide 25.0 Anion Gap 8.0 BUN 11 Creatinine 0.84 Estimated GFR/1.73 m2 >= 60.00 Glucose 104 H Calcium 8.8 Magnesium 1.8 Total Bilirubin 1.7 H AST 23 ALT 28 Alkaline Phosphatase 107 Troponin I < 0.05 Total Protein 7.3 Albumin 3.8 Lipase 57 L Urine Color Yellow Urine Clarity Clear Urine pH 7.0 Ur Specific [place] 1.010 Urine Protein Negative Urine Ketones Negative Urine Blood Negative Urine Nitrite Negative Urine Bilirubin Negative Urine Urobilinogen 0.2 Ur Leukocyte Esterase Negative Urine Glucose Negative [facility] Medical History Acute appendicitis (Resolved) Atopic dermatitis, unspecified (Acute 10/22/17) Dermatitis (Acute 12/19/13) B/L eyelids--Eucerin/Aquaphor Seasonal allergic rhinitis Surgical History No significant past surgical history (Acute) S/P laparoscopic appendectomy (Acute ~02/07/19) Family History Mother No problems noted. Father No problems noted. Sister No problems noted. Brother No problems noted. Grandmother Heart disease Grandfather Stroke Social History Smoking/Tobacco Use Status: Never Alcohol Intake: never Drug use: Never Do you feel safe at home: Yes Do you feel safe in your relationship?: Yes
== END 2019-02-08 10:25 | disposition home or self-care (01) ==
LOC: ER 14:39 → SUR 14:44 → MS 17:13
PROVIDERS: Admitting Provider Surgery; Emergency Provider Physician Assistant; PCP Nurse Practitioner Family; Visit Provider Surgery
PROC: 0DTJ4ZZ Resection of Appendix, Percutaneous Endoscopic Approach (ICD-10-PCS; CPT 44970; principal; 2019-02-07 13:30)
DX: K35.890 Other acute appendicitis without perforation or gangrene (principal); Z23 Encounter for immunization
CPT/HCPCS: 44970; 36415; 80053; 83690; 93005; 96361; 96374; 96375; 99222; 99285; NC; 74177; 81003; 83735; 84484; 85025; 88304; 93010; G0378; J1100; J1885; J2405; J2543; J3010

== ENCOUNTER 2019-02-07 12:22 | Outpatient (CLI) | payer BC, SELFPAY ==
--- NOTE | 2019-02-07 11:30 | DI.US_ITS ---
EXAM: US ABDOMEN CLINICAL HISTORY: ABD PAIN,R10.9,SUSPECT CHOLELITHIASIS,PANCREATITIS. TECHNIQUE: Ultrasound abdomen performed using standard protocol. COMPARISON: No exams were available for comparison FINDINGS: LIVER: Normal. GALLBLADDER: No evidence of cholelithiasis. No evidence of wall thickening. No pericholecystic fluid identified. KIDNEYS: Kidneys are symmetric in size. No evidence of renal calculi. No evidence of hydronephrosis. No renal mass or cyst identified. BILIARY SYSTEM: Common bile duct measures 3 mm. No intrahepatic biliary ductal dilation. YADAV'S SIGN: Negative. PANCREAS: Normal where visualized. SPLEEN: Not enlarged. ABDOMINAL AORTA AND IVC: Visualized portions normal caliber. ASCITES: None seen. IMPRESSION: Normal sonographic appearance of the upper abdomen.
== END 2019-02-07 12:42 ==
PROVIDERS: PCP Nurse Practitioner Family; Visit Provider Family Medicine
DX: R10.9 Unspecified abdominal pain (principal)
CPT/HCPCS: 76700